=== PATIENT | male | born 1995 | race African-American/Black ===

== ENCOUNTER 2018-10-31 18:04 | Emergency (ER) | payer OTHER, SELFPAY ==
[2018-10-31 18:05] VITALS: BP 130/80; PULSE 95; RESP 16; TEMP 36.7; O2SAT 96; BMI 27.9
--- NOTE | 2018-10-31 18:07 | RAD_ITS ---
STUDY: X-RAY - LEFT HAND, ATTENTION INDEX FINGER REASON FOR EXAM: Male, 23 years old. Trauma. Pain. TECHNIQUE: 3 view(s) of the finger were obtained. COMPARISON: None. FINDINGS: There is a minimally displaced fracture at the base of the distal phalanx of the left index finger. The remainder of the visualized osseous structures are intact. There are no radiodense foreign bodies. RAD/Finger(s) Min 2 Views IMPRESSION: Minimally displaced fracture at the base of the distal phalanx of the left index finger. Electronically Signed: Michael Perez, at 18:36 EDT Tel , Service support ,
--- NOTE | 2018-10-31 19:40 | ED.VIS.UPPEX ---
History of Present Illness Informant: Patient Occurred: Hours - 2 Mechanism/Context: Injury Context: Sudden Onset Timing: Continuous Quality of Pain: Aching Location: left index finger Current Severity: Mild Maximum Severity: Moderate Worsened by: moving, trying to extend Relieved by: remaining still Associated Symptoms: Loss of Funtion - cannot fully extend. Negative for: Parasthesia, Weakness Narrative: Patient states he was in a [employer] tournament, and during it, he states his finger was planted on the ground and he did a maneuver with his knee, and accidentally forcibly injured his finger, he was not looking in that direction at the time so is not exactly sure of the mechanism, but upon looking at it and feeling a pop, he noticed there was bleeding. He is right-hand dominant. No other injuries. He cannot fully extend it now. <Maurice Ayala - Last Filed: 10/31/18 21:57> <Jose Calderon - Last Filed: 11/03/18 07:50> Chief Complaint: Upper Extremity Injury Past Medical History Past Medical History: None Lives: Spouse/ Significant Other Smoking Status: Never smoker <Maurice Ayala - Last Filed: 10/31/18 21:57> <Jose Calderon - Last Filed: 11/03/18 07:50> - Allergies and Home Meds Allergies/Adverse Reactions: Allergies erythromycin base [Erythromycin Base] Allergy (Verified 10/31/18 18:04) Rash Primary Care Physician: Nic Edgar MD [STAFF PHYSICIAN] - (Call Friday morning for appointment this week) Review of Systems Musculoskeletal: Reports: Swelling, Extremity Pain Skin: Reports: Wounds. Denies: Rash Neurological: Denies: Headache, Weakness, Numbness <Maurice Ayala - Last Filed: 10/31/18 21:57> General: Denies: Chills, Fever, Malaise, Subjective, Sweats Eyes: Denies: Visual changes - bilaterally, Blurred Vision - bilaterally ENT: Denies: Bilateral ear pain, Left ear pain, Right ear pain, Rhinorrhea, Sore throat Cardiovascular: Denies: Chest pain, Palpitations, Heart racing Respiratory: Denies: Dyspnea, Cough, Sputum, Dyspnea on exertion Gastrointestinal: Reports: Abdominal pain, Nausea, Diarrhea - X1. Denies: Melena, Hematochezia Genitourinary: Denies: Dysuria, Hematuria, Frequency Endocrine: Denies: Polyuria, Polydipsia, Heat intolerance, Cold intolerance, -, - Hematologic: Denies: Easy bruising, Easy bleeding, Lymphadenopathy, -, - <Calderon,Jose - Last Filed: 11/03/18 07:50> Physical Exam Vital Signs/Narrative: Vital Signs Temp Pulse Resp BP Pulse Ox 10/31/18 18:05 98.1 F 95 16 130/80 H 96 General: Well nourished, Well developed, - - Well-appearing, NAD Head: Normocephalic, Atraumatic Extremeties: Deformity at DIP joint of left index finger, not able to fully extend, mildly swollen there and tender in addition to the distal phalanx. Nailbed appears uninjured, nail is intact, but there appears to be a wound with dried blood at the area just proximal to the cuticle. Unable to flex his FDP, able to flex his FDS normally. No other apparent finger injury. Skin: Normal color, Trauma - Laceration dorsal left index finger, just proximal to the nail fold Neurological: Alert, Oriented x3, Cranial nerves II-XII grossly intact, Normal Strength, Normal Sensation, Normal Gait Psychological: Normal affect, Normal Mood <Maurice Ayala - Last Filed: 10/31/18 21:57> Vital Signs/Narrative: Vital Signs Temp Pulse Resp BP Pulse Ox 10/31/18 18:05 98.1 F 95 16 130/80 H 96 Eyes: Perrl, EOMI. Negative for: Pale conjunctiva, Scleral icterus ENT: No Trauma, Moist Mucous Membranes Neck: Nontender, Full ROM Cardiovascular: Regular rate, Regular rhythm, No murmurs, Normal S1, Normal S2 Respiratory: No distress, CTA bilaterally, Chest nontender Abdomen: Soft, Nondistended, Tender, Guarding - Left side/left lower quadrant, Hypoactive bowel sounds. Negative for: Normal bowel sounds Back: Nontender. Negative for: CVA Tenderness - Right, CVA Tenderness - Left <Calderon,Jose - Last Filed: 11/03/18 07:50> Diagnostic/Tx/Re-eval Clinical Impression(s) from Imaging Studies Finger X-Ray 10/31/18 18:07 IMPRESSION: Minimally displaced fracture at the base of the distal phalanx of the left index finger. Electronically Signed: Michael Perez, at 18:36 EDT Tel , Service support , - Medical Decision Making Above note is in error, wrong patient. It was difficult to obtain a good digital block, we had to touch it up multiple times, a total of 13 cc of 1% lidocaine was used. Eventually got his pain controlled enough to manipulate the nail, it appeared after cleansing the wound that the base of the nail was avulsed out of the cuticle. I attempted to use some scissors and for sit back down while extending at the DIP joint/fracture, however there is nothing to easily reduce with regards to the nail. It is intact with regards to the bed, so at this time I covered the wounded area with bacitracin, placed a nonstick dressing, with an aluminum finger splint in extension over top of it. He will be placed on Keflex prophylactically and follow-up with Dr. edgar with plastics/hand. <Maurice Ayala - Last Filed: 10/31/18 21:57> Procedures - Upper Extremity Splints Upper Extremity Splint: Alumifoam - in extension Splint Fabrication: Fabricated Location: Left - index finger; NVID after placement Procedure(s): Digital block, left index finger --isopropanol prep, total of 13 cc 1% plain lidocaine, mostly from a dorsal approach but in order to obtain anesthesia of 1 of the volar digital nerves, a palmar approach at the radial aspect was performed along with deposition of 1 cc, included in the above number. Tolerated well. <Maurice Ayala - Last Filed: 10/31/18 21:57> ED Disposition <Maurice Ayala - Last Filed: 10/31/18 21:57> <Jose Calderon - Last Filed: 11/03/18 07:50> - Plan for ED Patient: Disposition: Home or Assisted Living Diagnosis: Open fracture of distal phalanx of left index finger, Traumatic avulsion of nail plate of finger Instructions: FRACTURE, Finger (Open) Prescriptions: Cephalexin [Keflex] 500 mg PO BID #14 cap Prescription Printed Hydrocodone Bitart/Apap 5-325 [[place] 5MG-325MG] 1 tab PO Q4H PRN PRN 2 Days #10 tab PRN Reason: Pain Prescription Printed Referrals: Nic Edgar MD [STAFF PHYSICIAN] - (Call Friday for appointment this week)
[2018-10-31 21:56] VITALS: RESP 16
[2018-10-31] MEDS: Ibuprofen 600 MG Tablet PO (22:16)
[2018-10-31] MEDS: Cephalexin 250 MG Capsule 500 MG PO (22:17)
[2018-10-31] MEDS: HYDROcodone Bitartrate/Apap 5/325 Tablet PO (22:17)
[2018-10-31] MEDS: BACITRACIN 15 GM Tube 1 APPLIC TOPICAL (22:18)
[2018-10-31 22:19] VITALS: RESP 16
== END 2018-10-31 22:20 | disposition home or self-care (01) ==
PROVIDERS: Emergency Provider Emergency Medicine; Family Provider Family Medicine; PCP Family Medicine
DX: S62.631B Displaced fracture of distal phalanx of left index finger, initial encounter for open fracture (principal); X58.XXXA Exposure to other specified factors, initial encounter; Y93.75 Activity, martial arts; Y92.9 Unspecified place or not applicable
CPT/HCPCS: 29130; 64450; 73140; 99284